=== PATIENT | male | born 1970 | race Caucasian/White ===

== ENCOUNTER → 2021-05-19 11:28 | Outpatient (CLI) | payer OTHER, SELFPAY ==
[2015-11-23 09:03] VITALS: BMI 36.6
[2021-05-19 15:24] LABS: Vitamin D,25 Hydroxy 55.6 ng/mL
[2021-05-19 15:28] LABS: Magnesium 2.3 mg/dL (1.6-2.6); PSA,Total - Annual Screen 0.94 ng/mL (0.00-4.00); Thyroid Stim Hormone (TSH) 1.87 uIU/mL (0.358-3.74)
== END ==
PROVIDERS: PCP Family Medicine; Referring Provider Family Medicine; Visit Provider Family Medicine
DX: Z00.00 Encounter for general adult medical examination without abnormal findings (principal); R25.2 Cramp and spasm; Z12.5 Encounter for screening for malignant neoplasm of prostate
CPT/HCPCS: 36415; 82306; 83735; 84153; 84443; G0103

== ENCOUNTER → 2021-06-02 13:17 | Outpatient (CLI) | payer OTHER, SELFPAY ==
--- NOTE | 2021-06-02 13:22 | CT_ITS ---
STUDY: CT SOFT TISSUE NECK WITH CONTRAST REASON FOR EXAM: Male, 51 years old. Left lateral neck mass. RADIATION DOSAGE (If Supplied By Facility): CTDIvol = ( 19.65 ) mGy, DLP = ( 586.25 ) mGycm TECHNIQUE: The patient was scanned in a multi-detector CT scanner. High resolution transaxial imaging was performed following intravenous administration of IV 100ML ISOVUE 370. Sagittal and coronal images were reconstructed. Individualized dose optimization techniques were used for this CT. COMPARISON: None. FINDINGS: Normal bilateral parotid glands. Normal bilateral manager solar spaces. Normal bilateral parapharyngeal spaces. Normal bilateral carotid spaces. Normal bilateral sublingual and submandibular glands and spaces. Normal visualized nasopharynx. Normal retropharyngeal space. Normal perivertebral space. Normal visualized bilateral faucial tonsils. The visualized tongue, tongue base and oropharynx are normal. There are minimally enlarged lymph nodes of the neck, with preservation of normal claire architecture, consistent with a reactive lymph hyperplasia. There is no demonstrated solid or cystic mass lesion. There is no abnormal contrast enhancement. Normal epiglottis, bilateral vallecula and hypopharynx. The pre-epiglottic and paraglottic adipose spaces are normal. Normal visualized bilateral piriform sinuses, aryepiglottic folds, vocal cords, and arytenoid-cricoid articulations. Normal subglottic trachea. Normal bilateral lobes of the thyroid gland. Normal visualized pulmonary apices. Normal visualized paranasal sinuses. Normal visualized cervical spine. CT/Soft Tissue Neck WITH Contrast IMPRESSION: No cervical mass is seen. Electronically Signed: Chriss nErique MD at 15:39 EDT , Service support ,
== END ==
PROVIDERS: PCP Family Medicine; Referring Provider Family Medicine; Visit Provider Family Medicine
DX: R22.1 Localized swelling, mass and lump, neck (principal)
CPT/HCPCS: 70491; Q9967

== ENCOUNTER → 2022-11-11 | Outpatient (CLI) | payer OTHER, SELFPAY ==
[2022-11-11 12:36] LABS: Hemoglobin A1c 5.7 % (3.8-5.6)
[2022-11-11 12:40] LABS: Cholesterol 175 mg/dL (200); High Density Lipoprotein 52 mg/dL; PSA,Total - Annual Screen 1.01 ng/mL (0.00-4.00); Triglycerides 124 mg/dL; Very Low Density Lipoprotein 25 mg/dL (5-40)
== END | disposition home or self-care (01) ==
LOC: MFPLAB 10:45
PROVIDERS: PCP Family Medicine; Referring Provider Family Medicine; Visit Provider Family Medicine
DX: Z00.00 Encounter for general adult medical examination without abnormal findings (principal)
CPT/HCPCS: 36415; 80061; 83036; 84153; G0103

== ENCOUNTER → 2024-10-21 | Outpatient (CLI) | payer OTHER, SELFPAY ==
[2024-10-21 13:00] LABS: PSA,Total - Annual Screen 1.41 ng/mL (0.00-4.00)
== END | disposition home or self-care (01) ==
LOC: MFPLAB 11:09
PROVIDERS: PCP Family Medicine; Referring Provider Family Medicine; Visit Provider Family Medicine
DX: Z12.5 Encounter for screening for malignant neoplasm of prostate (principal)
CPT/HCPCS: 36415; 84153; G0103

== ENCOUNTER → 2025-10-10 | Outpatient (CLI) | payer OTHER, SELFPAY ==
--- NOTE | 2025-10-10 10:04 | MRI_ITS ---
PROCEDURE: SPINE LUMBAR W/WO CONTRAST 10/10/2025 REASON FOR EXAM: PAIN X6 MONTHS, LEFT SIDE NUMBNESS, HX OF DISCECTO TECHNIQUE: Procedure Code: [id number] Modality: MR Procedure: SPINE LUMBAR W/WO CONTRAST Multiplanar and multisequence images were obtained without and with intravenous gadolinium-based contrast administration. CONTRAST: Clariscan VOLUME: 23 mL COMPARISON: None available. FINDINGS: For the purposes of this report, the most caudal rectangular vertebral body will be designated L5. The next most caudal trapezoidal shaped vertebral body will be designated S1. The intervening disc at the lumbosacral angle is designated L5-S1. The normal lumbar lordosis is maintained. The lumbar vertebral bodies are normal in height. The lumbar vertebral bodies are normal in alignment. Well-circumscribed T1/T2 hyperintense lesion at T12, L1, and L4 vertebral bodies compatible with osseous hemangioma. There is no focal enhancing and marrow replacing lesion in the lumbar spine. There is no evidence of signal abnormality in the imaged distal spinal cord or abnormal enhancement within the lumbar spinal canal. The conus medullaris terminates at the level of L1. Multilevel disc desiccation. Intervertebral disc space height loss most prominent at L5-S1. T12-L1: No significant spinal canal stenosis neural foraminal narrowing. L1-L2: Disc bulge contributes to mild spinal canal stenosis. There is bilateral facet arthrosis and uncovertebral spurring. No significant neural foraminal narrowing. L2-L3: Disc bulge, bilateral facet arthrosis, and ligamentum flavum hypertrophy contribute to mild spinal canal stenosis. Mild bilateral neural foraminal narrowing. L3-L4: Disc bulge, bilateral facet arthrosis, ligamentum flavum hypertrophy contribute to mild spinal canal stenosis. Mild bilateral neural foraminal narrowing. The bilateral L3 exiting nerve roots abut the disc. L4-L5: Disc bulge and superimposing central disc protrusion contribute to moderate spinal canal stenosis. Bilateral facet arthrosis and ligamentum flavum hypertrophy. Mild bilateral neural foraminal narrowing. L5-S1: Disc bulge and superimposing central disc protrusion contacts the ventral thecal sac. No significant spinal canal stenosis. Moderate bilateral neural foraminal narrowing predominantly secondary to disc bulge and facet hypertrophy. Type 2 Modic endplate changes. The posterior paraspinal muscles are intact. MRI/Spine Lumbar W/WO Contrast IMPRESSION: 1. No pathologic enhancement in the lumbar spine. 2. Lumbar spondylosis without high-grade spinal canal stenosis. Moderate bilat eral neural foraminal stenosis at L5-S1. Reading Location: [facility]
== END | disposition home or self-care (01) ==
PROVIDERS: PCP Family Medicine; Referring Provider Orthopaedic Surgery Orthopaedic Surgery of the Spine; Visit Provider Orthopaedic Surgery Orthopaedic Surgery of the Spine
DX: M54.16 Radiculopathy, lumbar region (principal)
CPT/HCPCS: 72158; A9575